=== PATIENT | female | born 2000 | race Caucasian/White ===

== ENCOUNTER 2019-01-16 02:19 | Emergency (ER) | payer OTHER ==
[~2019-01-16] VITALS: Ht 152.4 cm; Wt 60.8 kg
[2019-01-16] MEDS ORDERED: PRENATAL PO (02:36)
[2019-01-16 02:49] LABS: URINE BILIRUBIN NEGATIVE (Negative); URINE BLOOD NEGATIVE (Negative); URINE CLARITY CLEAR; URINE COLOR YELLOW; URINE GLUCOSE-RANDOM* NEGATIVE (Negative); URINE KETONES NEGATIVE (Negative); URINE LEUKOCYTES-REFLEX NEGATIVE (Negative); URINE NITRITE-REFLEX NEGATIVE (Negative); URINE PROTEIN (DIPSTICK) NEGATIVE (Negative); URINE SPECIFIC GRAVITY <= 1.005 (1.005-1.035); URINE UROBILINOGEN 0.2 E.U./dl (0.2-1.0)
[2019-01-16 03:10] LABS: ABSOLUTE NEUTROPHILS 6.2 thou/uL (1.4-8.2); BASOPHILS 0.5 % (0.0-2.0); EOSINOPHILS 1.3 % (0.0-3.0); HEMATOCRIT 35.4 % (37.0-47.0); HEMOGLOBIN 12.3 gm/dL (12.0-15.0); LYMPHOCYTES 25.6 % (24.0-44.0); MCH 28.7 pg (26.0-34.0); MCHC 34.6 g/dL (28.0-37.0); MONOCYTES 9.8 % (1.0-8.0); PLATELET COUNT 201 thou/uL (150-400); POLYS 62.8 % (36.0-66.0); RBC 4.27 mil/uL (4.20-5.00); WBC 9.9 thou/uL (4.0-11.0)
[2019-01-16 04:06] VITALS: BP 94/60
== END 2019-01-16 04:07 | disposition home or self-care (01) ==
LOC: ER 02:19
PROVIDERS: Emergency Medicine
DX: O26.891 Other specified pregnancy related conditions, first trimester (principal); R10.31 Right lower quadrant pain; Z3A.11 11 weeks gestation of pregnancy